=== PATIENT | female | born 1990 | race Hispanic/Latino ===

== ENCOUNTER 2016-06-19 14:57 | Inpatient (IN) | payer OTHER ==
[~2016-06-19] VITALS: Ht 170.2 cm; Wt 114.3 kg
[~2016-06-19 14:57] MED LIST: IBUP-1152 PO
[2016-06-19] MEDS ORDERED: Ondansetron 2 mg/mL 2 mL Inj IVPUSH PRN (16:55)
[2016-06-19] MEDS ORDERED: Oxytocin 30 Units/500 mL LR 30 UNITS in IV Premix 1 EACH IV PRN ×2 (16:55→17:30)
[2016-06-19] MEDS ORDERED: PREN-12 PO (16:55)
[2016-06-19] MEDS ORDERED: Hemorrhage Kit, Post Partum XX ONE (16:55)
[2016-06-19] MEDS ORDERED: fentaNYL-PF 50 mCg/mL 2 mL Inj IVPUSH PRN (16:55)
[2016-06-19] MEDS ORDERED: Oxytocin 10 Unit/mL Inj IM PRN (16:55)
[2016-06-19] MEDS ORDERED: Sodium Chloride LOK Flush 10 mL Syringe IVFLUSH PRN (16:55)
[2016-06-19] MEDS ORDERED: Methylergonovine 0.2 mg/mL Inj IM PRN (16:55)
[2016-06-19] MEDS ORDERED: Carboprost 250 mCg/mL Inj IM PRN (16:55)
[2016-06-19 17:13] LABS: Mean Corpuscular Hemoglobin 27.9 pg (27.0-35.0); Mean Corpuscular Volume 86.3 fL (81-100)
[2016-06-19] MEDS: Lactated Ringer's 1,000 ML IV SCH (17:52)
--- NOTE | 2016-06-19 19:37 | HP ---
[address] [address] HISTORY AND PHYSICAL PATIENT: CORBIN GALLEGOS : 1990 MR#: [id number] ADMIT: 06/19/2016 JOB ID: [id number] DATE: 06/19/2016 CHIEF COMPLAINT: Leaking fluid. HISTORY OF PRESENTING ILLNESS: This is a 26-year-old, 2, para 1-0-0-1, at 40 weeks and 4 days gestation with expected date of delivery of june 15, 2016 dated by last menstrual period and consistent with 1st trimester ultrasound. The patient had a gush of fluid at around 11 a.m., light green in color, and continued to lose fluid sense triage ROM Plus test was positive. The patient denies any strong contractions, but she does feel some mild backache on and off. Good movements. No fever. No abdominal pain. The patient's blood pressure noted to be systolic in the 150s and diastolic in the 80s to 60s. The patient denies any headache, change in vision, nausea, vomiting or any epigastric pain. The patient denies history of high blood pressure, though in reviewing her records there was one reading of elevated blood pressure of 154/72 at 25 weeks of gestation. Her blood pressure at the intake was 120/70 at 10 weeks. PROBLEM LIST DURING THIS : Previous section in 2012 for nonreassuring heart tones with chorioamnionitis at 40 weeks of gestation. The patient desires trial of labor after section. Patient signed the consent earlier at the office. PAST GYNECOLOGIC HISTORY: Menarche at age 10. Regular menstrual cycles. Was not on any control pills or any contraception at the time of her last menstrual period. Last menstrual period was September 13, 2015. No history of abnormal Pap smear. No history of sexually transmitted infections. PAST OBSTETRIC HISTORY: In 2012, had a primary section at 40 weeks of gestation. Male infant, 8 pounds. Her records was a breech presentation. Indication of section was nonreassuring heart tones and chorioamnionitis. PAST MEDICAL HISTORY: The patient denies history of hypertension or history of preeclampsia. Never used inhalers before. No history of asthma. No history of migraines. PAST SURGICAL HISTORY: None. FAMILY HISTORY: Both parents are healthy. Siblings are healthy. Denies history of congenital anomalies or developmental delay. The patient does not have a family history of twins. Her father is a twin. MEDICATIONS: vitamins. ALLERGIES: Denies drug allergies. SOCIAL: Denies smoking, alcohol, or illicit drug abuse. REVIEW OF SYSTEMS: Comprehensive 10 point review of systems negative except for the items mentioned in the history of presenting illness. PHYSICAL EXAMINATION: Blood pressure 153/80, repeat blood pressure consistently in the 150s/70s and 80s. Last blood pressure was 144/66, heart rate 102, respiratory rate 16, and temperature 36.6. In general, alert, oriented to time, place, and person. Head: Normocephalic, atraumatic. Neck is supple. Chest: Equal air entry bilaterally. No added sounds. Cardiovascular: S1 plus S2 plus 0. Abdomen gravid. No tenderness. Estimated weight 8.5 pounds. Pelvic exam: Cervix is 1.5 cm, 80%, soft, -1 station and mid position. Rincon's score of 9. Lower extremities +1 edema bilaterally. Deep tendon reflexes +2 bilaterally and no clonus. LABS: Blood type A positive. Antibody screening negative. Hematocrit 38% at the intake on October 21, 2015. Rubella immune, varicella immune, RPR immune, nonreactive, hepatitis B surface antigen negative, HIV nonreactive, TSH 1.4. Hemoglobin A1c 5.3, hepatitis C negative. Chlamydia and gonorrhea screening on November 24, 2015 negative. Diabetes screening test within normal limits 116 was done at 25 weeks of gestation. ADMISSION LABS: White blood cell count 10.7, hemoglobin 12.8, platelets 271. IMAGING: Last ultrasound was January 30, 2016 done at 20 weeks and 2 days of gestation estimated weight 53rd percentile. Anatomy scan within normal limits. Placenta anterior fundal without previa. ASSESSMENT: This is a 26-year-old, 2, para 1-0-0-1, at 40 weeks and 4 days gestation with history of previous one section, desires trial of labor after section presented with premature rupture of membranes. No signs of active labor or contractions. Light meconium fluid. Group B strep is negative. Test was done on May 24, 2016. Blood pressure is elevated today. No history of preeclampsia or chronic hypertension, asymptomatic. PLAN: Preeclampsia labs drawn. The patient was counseled about risk and benefits and alternatives of trial of labor after sections and compared to a primary elective section. Calculated success rate for vaginal after section is approximately 41% with 59% risk of failure rate. Patient understands that after a failed attempt of vaginal after section, a section would be the mode of delivery with more increased risk of complications compared to elective section. The patient understands the risk of uterine rupture which is between 0.5-1.5%. The patient understands that the chances of successful is less with induced labor compared to spontaneous labor. Patient also understands the consequences of uterine rupture in safety and her future fertility and risk of a hysterectomy. Patient desires to proceed with induction of labor and desires to proceed with a trial of labor after section. Informed consents were signed. All questions were answered. Will start with Pitocin induction as the cervix is favorable. Continue close monitoring. MTDD
[2016-06-19] MEDS: Lactated Ringer's 1,000 ML IV PRN (21:48)
[2016-06-20] MEDS ORDERED: Atropine 1 mg/mL Inj IVPUSH PRN (01:50)
[2016-06-20] MEDS ORDERED: Ondansetron 2 mg/mL 2 mL Inj IVPUSH PRN ×2 (01:50→10:05)
[2016-06-20] MEDS ORDERED: fentaNYL-PF 50 mCg/mL 2 mL Inj IVPUSH PRN ×2 (01:50→10:05)
[2016-06-20] MEDS ORDERED: EPHEDrine Sulfate 50 mg/mL Inj IV PRN (01:50)
[2016-06-20] MEDS ORDERED: fentaNYL 2 mCg/mL-Bupivicaine 0.125% 100 mL Premix EPIDURAL ONE (01:52)
[2016-06-20] MEDS: Lactated Ringer's 1,000 ML IV PRN ×2 (02:19→03:24)
--- NOTE | 2016-06-20 02:31 | PCM.HPANE ---
Patient Data Surgeon Admitting Provider:Leana Padilla MD Attending Provider:Leana Padilla MD Primary Care Physician:Nikita Other Provider:Brandi Anderson Anesthesia Reason for Visit Term Labor Check TERM LABOR CHECK Ht/WT & BMI Body Mass Index Allergies Coded Allergies: No Known Allergies (Unverified Allergy, Unknown, 06/19/16) Medications Reported Medications Vit W-Ca,Fe,FA(<1 mg) ( Formula)1 Each Tablet1 Each PO DAILY 06/19/16 Discontinued Scripts IBUPROFEN-Expunged Drug, Do Not Renew! 800 Mg [id number] Mg PO Q6 PRN #40 Ref 1 Prov:Ilsa Catalan MD 08/31/12 History History of ENT Problems?: No Hx of Heart Problems?: No Hx of Respiratory Problem?: No Hx Neurologic Problems?: No Hx of GI Problems?: No Hx of Problems?: No Female Hx: Positive for:: Currently Hx Musculoskeletal Problems?: No Hx of Psycho/Social Problems?: No Stop/Bang Risk Assessment Category Category 1A: Patient has history of documented sleep apnea, and HAS NOT received any narcotic, sedative or anesthesia administration during this stay. Category 1B: Patient has history of documented sleep apnea, and HAS received any narcotic , sedative or anesthesia administration during this stay Category 2: Patient has SUSPECTED Obstructive Sleep Apnea, and HAS received any narcotic , sedative or anesthesia administration during this stay. Category 3: Patient has SUSPECTED Obstructive Sleep Apnea and HAS NOT received narcotic, sedative or anesthesia administration during this stay. Category 4: Outpatient in Procedural Areas with known sleep apnea or who screen positive for High Risk via the STOP/BANG questionnaire. Exam Exam General Appearance: Alert, Oriented X3, Cooperative, No Acute Distress HEENT/AIRWAY: MP 3 Lungs: Clear to Auscultation Heart: Exam Unremarkable Meds/Labs/Diagnostics Admission Meds Current Medications Lactated Ringer's (Lr) 1,000 ml @ 125 mls/hr Q8H IV Last administered on t 17:52; Start 06/19/16 at 17:28 Labs Test 06/19/16 16:05 06/19/16 18:42 White Blood Count 10.7th/mm3 (3.8-10.1) Red Blood Count 4.59mil/mm3 (3.90-5.20) Hemoglobin 12.8g/dL (12.0-15.6) Hematocrit 39.6% (35.0-46.0) Mean Corpuscular Volume 86.3fL (81-100) Mean Corpuscular Hemoglobin 27.9pg (27.0-35.0) Mean Corpuscular Hemoglobin Concent 32.3% (32.0-37.0) Red Cell Distribution Width 14.5% (12.3-15.4) Platelet Count 271bil/L (150-400) Hold Purple Top Tube Received (Received) Urine Random Creatinine 58mg/dL (16-392) Urine Random Total Protein 16mg/dL (0-15) Urine Protein/Creatinine Ratio 0.28 Blood Urea Nitrogen 6mg/dL (6-20) Creatinine 0.40mg/dL (0.57-1.00) Uric Acid 2.6mg/dL (2.6-7.2) Aspartate Amino Transf (AST/SGOT) 21U/L (0-50) Alanine Aminotransferase (ALT/SGPT) 18U/L (0-32) Plan Impression Patient chart reviewed, patient interviewed and anesthestic plan with risks, benefits, and alternatives discussed, and informed consent obtained. ASA Physical Status: ASA2 Mod Systemic Disease Anesthetic Plan: Epidural Bene/Risks/Altern/Consents: Yes HP Complete Prior to Induction: Yes Sukhwinder Benoit MD Jun 20, 2016 01:47
[2016-06-20] MEDS ORDERED: Morphine PF 1 mg/mL 10 mL Inj ONE (07:18)
[2016-06-20] MEDS ORDERED: Oxytocin 10 Unit/mL Inj ONE ×2 (07:18→13:53)
--- NOTE | 2016-06-20 07:18 | PCM.PNOBIP ---
Subjective Date of Service Jun 20, 2016 Subjective comfortable on Epidural. Gastrointestinal: No N/V Group B Strep Results: Negative Labs Laboratory Tests 06/19/16 16:05: Hold Purple Top Tube Received 06/20/16 05:19: White Blood Count 15.8, Red Blood Count 4.29, Hemoglobin 12.0, Hematocrit 36.9, Mean Corpuscular Volume 86.0, Mean Corpuscular Hemoglobin 28.0, Mean Corpuscular Hemoglobin Concent 32.5, Red Cell Distribution Width 14.5, Platelet Count 242 Exam Vital Signs Vital Signs Contraction frequency in minutes: MVUs: Vital Signs: VS reviewed, concerns are (HR 110's , No fever , T 37.00. ) Heart Tracings Heart Tones Baseline 155 bpm Heart Rate Variability: Moderate Heart Rate Accelleration: Present Heart Rate Deceleration: Present (intermittent breif variable declerations. overight two declerations for 2-3 minutes resolved. ) Tocometry/IUPC Contraction frequency in minutes: MVUs: Sterile Vaginal Exam Cervical Dilation: 4 cms (at 2:00 am) Exam Abdomen: Abdomen non-tender General: Alert, Oriented X3, Cooperative, No Acute Distress OB Intrapartum Assessment/Plan Assessment This is a 26-year-old, 2, para 1-0-0-1, at 40 weeks and 5 days gestation with history of previous one section, desires trial of labor after section presented with: 1. premature rupture of membranes on Pitocin. Light meconium fluid. Group B strep is negative. Maternal tachycardia and WBC 15 but No fever. transient tachycardia resolved. Continue close monitoring for S&Sx of chorio. 2. Gestaional HTN: Blood pressure elevated at presentaion , Labs WNL. No history of preeclampsia or chronic hypertension, asymptomatic. Mark Urbano MD Jun 20, 2016 07:18
[2016-06-20] MEDS: Lactated Ringer's 1,000 ML IV SCH ×3 (07:30→20:26)
[2016-06-20] MEDS ORDERED: Gentamicin Inj 80 MG in Dextrose 5% 50 ML IV ONE (08:05)
[2016-06-20] MEDS ORDERED: Clindamycin Inj 900 MG in IV Premix 1 EACH IV ONE (08:05)
[2016-06-20] MEDS ORDERED: Ampicillin Inj 2,000 MG in 0.9% Sodium Chloride 100 ML IV SCH (08:05)
[2016-06-20] MEDS ORDERED: Sodium Citrate-Citric Acid 15 mL Solution PO SCH (08:05)
[2016-06-20] MEDS ORDERED: Sodium Citrate-Citric Acid 15 mL Solution ONE (08:22)
[2016-06-20] MEDS ORDERED: Sodium Chloride LOK Flush 10 mL Syringe IVFLUSH SCH (08:30)
[2016-06-20] MEDS ORDERED: Morphine PF 1 mg/mL 10 mL Inj EPIDURAL ONE (09:30)
[2016-06-20] MEDS ORDERED: Hemorrhage Kit, Post Partum XX ONE (10:00)
[2016-06-20] MEDS ORDERED: Carboprost 250 mCg/mL Inj IM PRN (10:00)
[2016-06-20] MEDS ORDERED: Oxytocin 30 Units/500 mL LR 30 UNITS in IV Premix 1 EACH IV PRN (10:00)
[2016-06-20] MEDS ORDERED: LANOlin HPA 7 Gm Ointment TOPICAL PRN (10:00)
[2016-06-20] MEDS ORDERED: HYDROcodone-APAP 5-325 mg Tablet PO PRN (10:00)
[2016-06-20] MEDS ORDERED: Oxytocin 10 Unit/mL Inj IM PRN (10:00)
[2016-06-20] MEDS ORDERED: Methylergonovine 0.2 mg/mL Inj IM PRN (10:00)
--- NOTE | 2016-06-20 10:03 | PCM.ANEP1 ---
Post Anesthesia Phase 1 PACU Phase 1 Assessment Vital Signs BP: 142/60 HR: 100 SpO2: 99% T: 36.8 RR: 20 Anesthetic Administered: Epidural Level of Alertness: Awake, talking LAMB's with Equal Strength: No (residual epidural block) Nausea or Vomiting: No Oxygen Delivery: Room Air Lungs: Normal Air Movement Dermatome Level: T2 ([place]) Jamel Torres MD Jun 20, 2016 10:03
[2016-06-20] MEDS ORDERED: EPHEDrine Sulfate 50 mg/mL Inj IVPUSH PRN (10:05)
[2016-06-20] MEDS ORDERED: Atropine 0.4 mg/mL Inj IV PRN (10:05)
--- NOTE | 2016-06-20 10:06 | PCM.ANEP2 ---
Post Anesthesia Evaluation ASA/CMS Post Anesthesia VS in Patient's Normal Range?: Yes Resp Stable; Airway Patent?: Yes CV Function & Hydration Stable: Yes Mental Status Recovered?: Yes Pain control Satisfactory?: Yes N/V Control Satisfactory?: Yes Jamel Torres MD Jun 20, 2016 10:06
--- NOTE | 2016-06-20 10:37 | PROG NOTE ---
[address] [address] PROGRESS NOTE PATIENT: CORBIN GALLEGOS : 1990 MR#: [id number] ADMIT: 06/19/2016 JOB ID: [id number] DATE: 06/20/2016 SUBJECTIVE: A 36-year-old female. She is 2, para 1 with a history of previous section, desire for ToLAC admitted yesterday for rupture of membranes at 11 o'clock. She was admitted and she got epidural for pain and she had induction of labor with Pitocin. When I presented for my shift at 7 o'clock, the patient still ruptured. She has been afebrile and her labor pain was well controlled. Her heart tracing was category 2 with severe tachycardia from about 160-170 with intermittent moderate variability and then minimal variability. There was intermittent late deceleration. Her contraction was every 2-4 minutes and it was monitored by APC and heart tracing was monitored by FSE. I examined the patient around 7:30 and it was noticed her cervix still 3-4 cm dilated at -1 to 0 station. The amniotic fluid was light meconium stained. After my examination, I noticed her heart tracing is deteriorating to 170-180s with intermittent late decelerations and she also started developing fever of 37.5 and subjectively felt warm. Discussed with the patient at this time patient is still in early labor and no progress of labor with deteriorating heart tracing and she is developing chorioamnionitis. Recommended the patient to have a section. The patient explained to her about the benefits, risks and alternatives for the procedure. The patient agreed for the procedure and she signed consent form. When the decision was made, there was one OR where was going on in the OR and decision was made to have a close followup and we will wait for the previous to be finished and then go to OR for our , but during waiting, her heart tracing continued to deteriorate. Her baseline at 180 was minimal variability and deceleration and plan was made to have stat section. XIANG
[2016-06-20] MEDS: Acetaminophen IV 1,000 MG in IV Premix 1 EACH IV PRN ×2 (11:34→20:26)
[2016-06-20] MEDS ORDERED: Lidocaine 2%-Epi 1:100,000 20 mL Inj ONE (13:53)
[2016-06-20] MEDS: Ampicillin Inj 2,000 MG in 0.9% Sodium Chloride 100 ML IV SCH ×2 (13:53→20:46)
[2016-06-20] MEDS: Clindamycin Inj 900 MG in IV Premix 1 EACH IV SCH (16:33)
[2016-06-20] MEDS: Gentamicin Inj 80 MG in Dextrose 5% 50 ML IV SCH (17:35)
--- NOTE | 2016-06-20 19:37 | OP ---
[address] [address] OPERATIVE REPORT PATIENT: CORBIN GALLEGOS : 1990 MR#: [id number] ADMIT: 06/19/2016 JOB ID: [id number] DATE OF SURGERY: 06/20/2016 This is a 26-year-old female, 2, para 2 now, status post repeat section. SURGEON: Leana Padilla MD. CAVALRY SCOUT: Sher Conroy MD. INDICATION OF PROCEDURE: Deteriorating category 2 tracing. Chorioamnionitis. No progress of labor. PREOPERATIVE DIAGNOSIS(ES): POSTOPERATIVE DIAGNOSIS(ES): Deteriorating category 2 tracing. Chorioamnionitis. No progress of labor. The facility assistant was very necessary for this procedure to get better exposure and so that the procedure goes smoothly. The patient understands the benefits, risks, alternatives of the procedure and understood the risk of infection, bleeding, blood transfusion, injury to the organs around the uterus including but not limited to the bladder, ureters, major vessels, nerves, and bowels. Informed consent signed. PROCEDURE IN DETAIL: The patient was transferred to the operating room. After anesthesia was noted to be adequate, she was placed in dorsal supine position with a leftward tilt. She was prepared and draped in normal sterile fashion. A Pfannenstiel incision was placed with scalpel along the previous scar. This incision was carried through to the underlying fascia with a scalpel. A transverse incision was placed on fascia with a scalpel and extended bilaterally with Shaffer scissors. At this time, the inferior aspect of the incision was grasped by Kochers and tented up. The underlying rectus muscle was dissected off. Then, the rectus muscle was dissected very carefully and the underlying peritoneum identified and entered bluntly. The peritoneum was extended both sharply and bluntly with direct visualization of the bladder and bowel. A lower blade was inserted to expose the lower segment of the uterus. The uterine vesicoperitoneum entered sharply with [place] scissors, and extended bilaterally sharply. The bladder flap created both digitally and sharply. Lower blade was reinserted. A transverse incision was placed on the lower segment of the uterus and extended bilaterally by bandage scissors. At this time, all the instruments were cleared from the field. Also, during the examination noticed the presenting part is the shoulder and the I instructed the nurse to stand by for possible help to push the head up. After the incision was made on the uterus, it was noticed although the presenting part was the shoulder, the head was still not low, it just had asynchronism. The head was delivered gently without difficulty, and the shoulder and chest delivered without difficulty. The cord clamped and cut 1 minute after the delivery of the fetus and the was handed to the waiting patent attorney. Cord blood gas was collected, regular cord blood collected. The placenta delivered spontaneously completely, and examined with three-vessel cord. Then, the uterus exteriorized and all debris and clots cleared from the field. The incision was examined. There was about 2-3 cm laceration on the right side of the incision down to the inferior direction without involvement of the bladder. This laceration was repaired by 0 Vicryl continuously. Then, the uterine incision was closed by 0-Vicryl continuously locked fashion. A couple of [id number] stitches were placed for hemostasis. Then, the pelvis was irrigated by warm normal saline. The uterus was returned back to the abdominal cavity. Hemostasis confirmed again. Both ovaries and tubes looked normal. At this time, two [id number] stitches were placed to approximate the rectus muscle. Then, the fascia was reapproximated by 0-Vicryl continuously. The subcutaneous fat tissue was closed by 2-0 plain sutures continuously. The skin was closed by 4-0 Monocryl on a Navin needle continuously subcutaneously. The patient tolerated the procedure well. All instrument, needles, laps and gauzes counted correct twice. The EBL was 800 cc. Urine output was 100 cc. The patient was transferred to recovery room in stable condition.
[2016-06-21] MEDS: Clindamycin Inj 900 MG in IV Premix 1 EACH IV SCH ×3 (00:40→17:25)
[2016-06-21] MEDS: Gentamicin Inj 80 MG in Dextrose 5% 50 ML IV SCH ×3 (01:28→19:19)
[2016-06-21] MEDS: Lactated Ringer's 1,000 ML IV SCH ×3 (01:59→17:59)
[2016-06-21] MEDS: Ampicillin Inj 2,000 MG in 0.9% Sodium Chloride 100 ML IV SCH ×4 (02:48→22:24)
[2016-06-21 06:22] LABS: Mean Corpuscular Hemoglobin 28.3 pg (27.0-35.0); Mean Corpuscular Volume 87.4 fL (81-100)
--- NOTE | 2016-06-21 07:23 | PCM.PNOBPP ---
Subjective Date of Service Jun 21, 2016 Post : Repeat Cesere[place] Delivery Subjective is a 26 y/o woman status post repeat section for category II heart tracing, non-progressing labor, and chorioamnionitis and she delivered a female at 3556 g with Apgars 8 and 8. Today is post- op day 1. She had some vomiting yesterday after surgery. She did not have an appetite yesterday. She had a subjective fever yesterday afternoon until 2:00 or 3:00 PM. Today, she feels better and has an appetite and no longer is nauseous. She has had some crackers this morning and tolerated them well. She does not have any pain in her abdomen or legs. She has not had a bowel movement but is passing gas. She is urinating without any issues. She has some episodes of gushes of lochia. Her daughter has been well. Lochia: Other (moderate) Pain Management: PO pain meds Gastrointestinal: Good Appetite, No N/V (today), Passing Flatus Postop Activity: Ambulating in Room Only Group B Strep Results: Negative Labs Laboratory Tests 06/19/16 16:05: Hold Purple Top Tube Received 06/21/16 05:58: White Blood Count 11.8, Red Blood Count 3.82, Hemoglobin 10.8, Hematocrit 33.4, Mean Corpuscular Volume 87.4, Mean Corpuscular Hemoglobin 28.3, Mean Corpuscular Hemoglobin Concent 32.3, Red Cell Distribution Width 14.8, Platelet Count 223 Exam Vital Signs Vital Signs: VS reviewed, stable Exam Abdomen: Abdomen soft, Abdomen appropriately tender : Voiding without difficulty Extremities: Normal pulses, No tenderness/swelling, No edema Lungs: Clear to Auscultation, Normal Air Movement Heart: Exam Unremarkable, Regular Rate/Rhythm, Normal S1, Normal S2, No Murmurs /Rubs/Gallops General: Alert, Oriented X3, Cooperative, No Acute Distress Surgical Wound : Incision General Appearence: Wound under dressing Dressing & Drainage Status: Dry & Intact, No Odor OB Post Assessment/Plan Assessment 1. 26 y/o woman status post repeat section for category II heart tracing, non-progressing labor, and chorioamnionitis. Post-op and post- day 1. 2. Probable chorioamnionitis Pain Evaluation: Adequate Pain Control VTE Mechanical Devices: Intermittant Pneumatic CD Post plan: Continue routine post care Plan: 1. 26 y/o woman status post repeat section for category II heart tracing, non-progressing labor, and chorioamnionitis. Post-op and post- day 1. - Pt is her daughter - Hernandez catheter removed - Continue ambulation - Continue with PO pain control - Anticipated discharge medications include Percocet, ibuprofen, colace, iron, and vitamin C 2. Probable chorioamnionitis - Placenta culture shows no growth today - Continue triple antibiotics (ampicillin, gentamicin, and clindamycin) for now and possibly discontinue them later today Lauren Boothe DO Jun 21, 2016 07:23
[2016-06-21] MEDS: oxyCODONE-Acetamin 5-325 mg Tablet PO PRN ×4 (08:15→21:30)
[2016-06-22] MEDS: Clindamycin Inj 900 MG in IV Premix 1 EACH IV SCH (01:37)
[2016-06-22] MEDS: oxyCODONE-Acetamin 5-325 mg Tablet PO PRN ×4 (01:37→14:15)
[2016-06-22] MEDS: Gentamicin Inj 80 MG in Dextrose 5% 50 ML IV SCH (03:25)
[2016-06-22] MEDS: Ampicillin Inj 2,000 MG in 0.9% Sodium Chloride 100 ML IV SCH (04:41)
[2016-06-22] MEDS ORDERED: ASCO-294 PO (07:09)
[2016-06-22] MEDS ORDERED: IBUP800T28 PO (07:09)
[2016-06-22] MEDS ORDERED: FERR-83 PO (07:09)
[2016-06-22] MEDS ORDERED: OXYC1TAB24 PO (07:09)
[2016-06-22] MEDS ORDERED: DOCU-41 PO (07:09)
--- NOTE | 2016-06-22 07:16 | PCM.DIMED ---
Discharge Instructions Date of Service Jun 22, 2016 Dates of Hospitalization Jun 19, 2016 at 15:30 Diet No restrictions Activity Limited until seen by PCP Call your provider Fever or Chills, Bleeding, Excessive diarrhea, Other (worsening swelling in legs , unilateral leg swelling, or pain in legs) Patient Instructions Continue your vitamin. Please take the iron and vitamin c together for your anemia. Do not take more pain medication (Percocet) than is necessary -- less is better. Percocet pills have Tylenol (acetaminophen) in them at 325mg per pill. Do not take Tylenol in addition to your pain medication but should take one or the other. Do not take while driving or working. Both iron and Percocet can give you constipation so you have also been given a prescription for docusate to keep you regular. Be sure to follow up in 2 weeks and then again in 6 weeks at [facility]. Pelvic rest for 6 weeks (nothing per vagina including intercourse, tampons) If you have a fever greater than 100.4, please call [facility]. There is always someone classification clerk to talk to. If you have an increase in bleeding, call [facility]. If you have a lot of bleeding suddenly, especially if you have symptoms of dizziness & weakness with it, get emergency help. If you start experiencing extreme depression, especially if you feel that you are a danger to yourself or your family, seek emergency help. You have been through a lot -- BE SURE TO TAKE CARE OF YOURSELF. You have been sent home with the following prescriptions: - Percocet 5/325 mg, take 1 tab every 4-6 hours as needed for pain. - Colace 100 mg twice a day as needed for constipation. - Ferrous sulfate 325 mg every day. - Vitamin C 500 mg every day. Take with iron. - Ibuprofen 800mg take 1 tab every 8 hours as needed for pain. Take with a meal. Follow-up in 2 and 6 weeks with [facility]. [facility] Follow-up with PCP in: 2 weeks (and 6 weeks) Lauren Boothe DO Jun 22, 2016 07:16
[2016-06-22 14:31] VITALS: BP 113/60; PULSE 83; RESP 20
--- NOTE | 2016-06-25 09:06 | PCM.DC.OB ---
Obstetrical Discharge Summary Date of Service Jun 22, 2016 Date of hospital admission Jun 19, 2016 at 15:30 Date of Discharge: Jun 22, 2016 Providers Admitting Physician: Leana Padilla MD Primary Care Physician: Nopraul Attending Physician: Leana Padilla MD Diagnosis at Time of Discharge 1. 26 y/o woman status post repeat section for category II heart tracing, non-progressing labor, and chorioamnionitis. Post-op and post- day 1. 2. Probable chorioamnionitis Problems: Invasive procedures repeat section Date of Procedure: Jun 20, 2016 Brief History and Physical: From the history and physical performed by Dr. Mark Urbano on 06/19/2016: This is a 26-year-old, 2, para 1-0-0-1, at 40 weeks and 4 days gestation with expected date of delivery of june 15, 2016 dated by last menstrual period and consistent with 1st trimester ultrasound. The patient had a gush of fluid at around 11 a.m., light green in color, and continued to lose fluid sense triage ROM Plus test was positive. The patient denies any strong contractions, but she does feel some mild backache on and off. Good movements. No fever. No abdominal pain. The patient's blood pressure noted to be systolic in the 150s and diastolic in the 80s to 60s. The patient denies any headache, change in vision, nausea, vomiting or any epigastric pain. The patient denies history of high blood pressure, though in reviewing her records there was one reading of elevated blood pressure of 154/72 at 25 weeks of gestation. Her blood pressure at the intake was 120/70 at 10 weeks. Hospital Course: 1. 26 y/o woman status post repeat section for category II heart tracing, non-progressing labor, and chorioamnionitis. Discharged on post- op and post day 2. - Pt had a female at 40 weeks 5 days weighing 3556 g with Apgars 8 and 8 - Pt was her daughter - Hernandez catheter removed - Anticipated discharge medications include Percocet, ibuprofen, Colace, iron, and vitamin C 2. Probable chorioamnionitis - Placenta culture shows no growth to date on day of discharge - Received triple antibiotics (ampicillin, gentamicin, and clindamycin) for 2 days after Ascorbate Calcium (Vitamin C) 500 Mg Tablet 500 MG PO DAILY Prescribed by: LAUREN BOOTHE DO Docusate Sodium (Colace) 100 Mg Capsule 100 MG PO BID PRN PRN For Constipation Prescribed by: LAUREN BOOTHE DO Ferrous Sulfate (Ferrous Sulfate) 325 Mg Tablet 325 MG PO DAILY Prescribed by: LAUREN BOOTHE DO Ibuprofen (Ibuprofen) 800 Mg Tablet 800 MG PO TID PRN PRN For Pain Prescribed by: LAUREN BOOTHE DO Vit W-Ca,Fe,FA(<1 mg) ( Formula) 1 Each Tablet 1 EACH PO DAILY (Reported) Last Taken: Unknown Dose on Unknown Date & Time oxyCODONE-Acetaminophen 5- 325 mg (oxyCODONE-Acetaminophen 5-325 mg) 1 Each Tablet 1 TAB PO Q6H PRN PRN For Pain Prescribed by: LAUREN BOOTHE DO Discontinued Medications IBUPROFEN-Expunged Drug, Do Not Renew! (IBUPROFEN-Expunged Drug, Do Not Renew!) 800 Mg Tablet 600 MG PO Q6 PRN PRN Prescribed by: ROSMERY SEAY MD Discharge Diet: No restrictions Discharge Activity-General: Pelvic Rest for 6 weeks Patient instructions Continue your vitamin. Please take the iron and vitamin c together for your anemia. Do not take more pain medication (Percocet) than is necessary -- less is better. Percocet pills have Tylenol (acetaminophen) in them at 325mg per pill. Do not take Tylenol in addition to your pain medication but should take one or the other. Do not take while driving or working. Both iron and Percocet can give you constipation so you have also been given a prescription for docusate to keep you regular. Be sure to follow up in 2 weeks and then again [facility] at [facility]. Pelvic rest for 6 weeks (nothing per vagina including intercourse, tampons) If you have a fever greater than 100.4, please call [facility]. There is always someone parks and recreation worker to talk to. If you have an increase in bleeding, call [facility]. If you have a lot of bleeding suddenly, especially if you have symptoms of dizziness & weakness with it, get emergency help. If you start experiencing extreme depression, especially if you feel that you are a danger to yourself or your family, seek emergency help. You have been through a lot -- BE SURE TO TAKE CARE OF YOURSELF. You have been sent home with the following prescriptions: - Percocet 5/325 mg, take 1 tab every 4-6 hours as needed for pain. - Colace 100 mg twice a day as needed for constipation. - Ferrous sulfate 325 mg every day. - Vitamin C 500 mg every day. Take with iron. - Ibuprofen 800mg take 1 tab every 8 hours as needed for pain. Take with a meal. Follow-up in 2 and 6 weeks with [facility]. Lauren Boothe DO Jun 22, 2016 07:54
--- NOTE | 2016-06-25 14:57 | PATH ---
SURGICAL PATHOLOGY Attending Physician:Leana Padilla MD CASE STATUS: Signed Out PATIENT NAME: CORBIN GALLEGOS PID: [id number] : 1990 DATE COLLECTED:06/20/2016 00:00 SPECIMEN: Placenta CLINICAL HISTORY: 1). PLACENTA FINAL DIAGNOSIS: Placenta with Umbilical Cord and Membranes: 1. Placenta: 501 grams. Negative for evidence of infarction. Negative for significant inflammation. 2. Umbilical cord: 15.4 cm in length with three normal blood vessels. Cord has a furcate insertion 6.0 cm from the placental edge. Three normal blood vessels present. Negative for significant inflammation. 3. membranes: Focal areas of acute chorionitis with no evidence of acute amnionitis. ICD10 O41.1 GROSS DESCRIPTION: The specimen is received in formalin, labeled with the patient's name and consists of an intact placenta and includes placental disc (501 g, 20.5 x 15.8 x 2.7 cm), umbilical cord (length-15.4 cm, diameter-1.2 x 0.9 cm) and membranes. The membranes are translucent and focally speckled with napier-white firm deposits (0.1-0.5 cm). The membranes are partially torn off; therefore, the rupture site cannot be determined. The umbilical cord has a furcate insertion 6.0 cm from the edge of the placenta and contains 3 vessels. The surface is focally pale and firm, smooth, and shiny with no evidence of meconium. The maternal surface is dark maroon and diffusely fibrous with normal cotyledon formation. The placental disc is spongy and focally fibrous. No masses or lesions are identified Section code: (A) edge of placenta with membranes, umbilical cord; (B) membranes, public health representative; (C-G) placenta, 5 full thickness sections. 06/21/16 ICD-9 CODES: CPT CODES: 1: 90670 Electronically Signed Out Mauro Eduardo MD [facility] Pathology [facility] [address], [place] [address] Technical component performed at [facility], [facility] [address], [address]
== END 2016-06-22 16:28 | disposition home or self-care (01) | DRG 765 ==
LOC: FBCO 14:57 → FBC 15:30
PROVIDERS: ADMIT Obstetrics & Gynecology; ATTEND Obstetrics & Gynecology
PROC: 10D00Z1 Extraction of Products of Conception, Low, Open Approach (ICD-10-PCS; principal; 2016-06-20 08:36)
DX: O41.1230 Chorioamnionitis, third trimester, not applicable or unspecified (principal); O13.3 Gestational [pregnancy-induced] hypertension without significant proteinuria, third trimester; O77.0 Labor and delivery complicated by meconium in amniotic fluid; Z3A.40 40 weeks gestation of pregnancy; O34.211 Maternal care for low transverse scar from previous cesarean delivery; Z37.0 Single live birth